=== PATIENT | female | born 1980 | race Caucasian/White ===

== ENCOUNTER 2018-12-26 19:48 | Emergency (ER) | payer SELFPAY ==
[~2018-12-26] VITALS: Ht 152.4 cm; Wt 101.2 kg
[2018-12-26] MEDS ORDERED: IV NORMAL SALINE 1000 ML BAG IV ONE (20:15)
[2018-12-26] MEDS ORDERED: HYDR-3326 PO (20:22)
[2018-12-26] MEDS ORDERED: ASPI81TA31 PO (20:22)
[2018-12-26] MEDS ORDERED: NITR100C11 PO (20:22)
[2018-12-26] MEDS ORDERED: MORPHINE SULFATE 2 MG/1 ML DISP.SYRIN ONE ×2 (20:54→22:21)
[2018-12-26 20:57] LABS: BASOPHILS % (AUTO) 0.5 % (0.0-2.0); EOSINOPHILS # (AUTO) 0.2 K/uL (0.0-0.7); EOSINOPHILS % (AUTO) 1.9 % (0.0-7.0); HEMATOCRIT 35.5 % (31.2-41.9); HEMOGLOBIN 11.2 g/dL (10.9-14.3); LYMPHOCYTES # (AUTO) 2.4 K/uL (20.0-40.0); LYMPHOCYTES % (AUTO) 23.4 % (20.5-51.5); MEAN CORPUSCULAR HEMOGLOBIN 23.7 uug (24.7-32.8); MEAN CORPUSCULAR HGB CONC 32 g/dL (32.3-35.6); MEAN CORPUSCULAR VOLUME 75.4 fL (75.5-95.3); MONOCYTES # (AUTO) 0.6 K/uL (2.0-10.0); NEUTROPHILS % (AUTO) 68.2 % (38.5-71.5); PLATELET COUNT (AUTO) 408 K/uL (179-408); RED BLOOD CELL COUNT(AUTO) 4.71 MIL/uL (3.63-4.92); WHITE BLOOD COUNT (AUTO) 10.3 K/uL (3.8-11.8)
[2018-12-26] MEDS ORDERED: ONDANSETRON ODT 4 MG TAB.RAPDIS ONE (21:00)
[2018-12-26] MEDS ORDERED: MORPHINE SULFATE 2 MG/1 ML DISP.SYRIN IM ONE ×2 (21:00→22:00)
[2018-12-26] MEDS ORDERED: ONDANSETRON ODT 4 MG TAB.RAPDIS SL ONE (21:00)
[2018-12-26 21:05] LABS: CREATININE 0.7 mg/dL (0.6-1.3); POTASSIUM 3.6 mmol/L (3.5-5.1)
[2018-12-26] MEDS ORDERED: ENOXAPARIN SODIUM 100 MG/ML DISP.SYRIN SQ ONE ×2 (22:00→22:20)
--- NOTE | 2018-12-26 22:40 | NUR ---
Pt admitted Telemetry Status under doctor Vance ogden. Pt to receive picc line in am. Pt understood terms of admission, diagnosis, and other relevant information. Transfer via gurney at 2240. Belongings list and admission paperwork sent up. Report given to Ramila TANNER.
[2018-12-26 22:44] LABS: *BILIRUBIN,URIN NEGATIVE (NEGATIVE); *BLOOD, URINE NEGATIVE (NEGATIVE); *CLARITY,URINE SLIGHTLY CLOUDY (CLEAR); *COLOR,URINE YELLOW (YELLOW); *KETONES,URINE NEGATIVE (NEGATIVE); *UROBILINOGEN,URINE 0.2 E.U./dl (NORMAL); LEUKOCYTE ESTERASE ,URINE 1+ (NEGATIVE); NITRITE, URINE NEGATIVE (NEGATIVE); PH,URINE 6.5 (5.0-8.0); UGLUCOSE NEGATIVE (NEGATIVE)
[2018-12-26 22:47] LABS: *URINE HCG, QUAL NEGATIVE (NEGATIVE)
[2018-12-26] MEDS ORDERED: ACETAMINOPHEN 325 MG TABLET PO PRN (23:00)
[2018-12-26] MEDS ORDERED: ONDANSETRON 4 MG/2 ML VIAL IV PRN (23:00)
[2018-12-26] MEDS ORDERED: MORPHINE SULFATE 2 MG/1 ML DISP.SYRIN IV PRN (23:00)
[2018-12-26] MEDS ORDERED: TEMAZEPAM 7.5 MG CAPSULE PO PRN (23:00)
--- NOTE | 2018-12-26 23:14 | NUR ---
Patient left AMA right when getting on the unit. Said called about no one to take care of kids. She said she spoke to her primary and he was aware of lab results and told her about the effects of what can happen, but she still wanted to leave. She said she wanted to sign the papers to leave, I went to go print them paper out and when I went back to the room she was already gone. Dr. Woodard is aware.
[2018-12-26 23:21] LABS: BACTERIA,URINE FEW /HPF (NONE SEEN); MUCUS,URINE FEW /LPF (0-FEW); RBC,URINE 0-3 /HPF (0-3); SQUAMOUS EPITHELIAL CELL,UR MODERATE /HPF (NONE SEEN)
[2018-12-27] MEDS ORDERED: PANTOPRAZOLE SODIUM 40 MG TABLET.DR PO SCH (07:00)
[2018-12-27] MEDS ORDERED: ASPIRIN 81 MG TAB.CHEW PO SCH (09:00)
[2018-12-27] MEDS ORDERED: DOCUSATE SODIUM 250 MG CAPSULE PO SCH (21:00)
== END 2018-12-26 23:15 | disposition left against medical advice (07) ==
LOC: ER 19:48 → UNDOADMIN 22:47 → TELE3 22:47 → UNDODISIN 23:15 → ER 23:15
DX: R07.9 Chest pain, unspecified (principal); R79.1 Abnormal coagulation profile; Z79.899 Other long term (current) drug therapy; Z86.718 Personal history of other venous thrombosis and embolism; Z86.711 Personal history of pulmonary embolism; Z79.82 Long term (current) use of aspirin
CPT/HCPCS: 36415; 71045; 80048; 81001; 84484; 84703; 85025; 85379; 85730; 93005 ×2; 96372 ×3; 99284; J1650; J2270 ×2; 70030-TC; A4663; G0378; J7030; Q0162